=== PATIENT | male | born 1940 | race Caucasian/White ===

== ENCOUNTER 2017-01-27 14:38 | Emergency (ER) | payer OTHER ==
[2017-01-27] MEDS ORDERED: NORMAL SALINE 10 ML SYRINGE FLUSH IVP PRN (14:48)
[2017-01-27] MEDS ORDERED: KETOROLAC 15 MG/1 ML VIAL IVP ONE (14:48)
--- NOTE | 2017-01-27 15:06 | PDOC ---
Back Pain / Injury HPI - General Chief Complaint: Neck / Back Complaint Stated Complaint: BACK PAIN Date Seen by Provider: 01/27/17 Time Seen by Provider: 15:00 - History of Present Illness Initial Comments: This patient is a very nice 76-year-old gentleman who presents to the emergency department with mechanical low back pain. He states that he has had a couple of different injuries back fractures in the past as required 2 different lumbar back surgeries that did include placing hardware in his back. He states that he had another mechanical slip and fall a few days ago and has had increased back pain since that time. He's finding it difficulty comfortable when he lies down it or stands up. He is concerned that there may be something loose in his back. He is unable to get an MRI secondary to a bladder stimulator that is been placed on his hip. He denies any new bladder symptoms or saddle anesthesia or leg symptoms at all. - Patient Home Medications Home Medications: Home Medications Antiox#10/Om3/Dha/Epa/Lut/Zeax [I-Caps with Lutein-Holcomb 3 Sfg] 1 each PO BID Aspirin [Aspir 81] 81 mg PO BID 01/27/17 Budesonide/Formoterol Fumarate [SYMBICORT] 2 inh IH BID 01/27/17 Cranberry Extract [Cranberry Concentrate] 500 mg PO BID 01/27/17 Diazepam [Valium] 10 mg PO BID PRN 01/27/17 Diazepam [Valium] 10 mg PO BID PRN #10 tab 01/27/17 Escitalopram Oxalate 10 mg PO DAILY 01/27/17 Hydrocodone/Acetaminophen [[place] 5-325 Tablet] 1 - 2 tab PO Q4H PRN #14 tab 11/10 Metoprolol Succinate/Hctz [Metoprolol ER-Hctz 25-12.5 mg] 1 each PO BEDTIME 11/10 - Patient Allergies Allergies/Adverse Reactions: Allergies Allergy/AdvReac Type Severity Reaction Status Date / Time Iodinated Contrast- Oral and Allergy Severe "SWELL UP Verified 01/27/17 14:44 IV Dye /TURN RED LIKE LOBSTER" codeine Allergy Intermediate HIVES Verified 01/27/17 14:44 Penicillins Allergy Unknown UNKNOWN Verified 01/27/17 14:44 Past Medical History Alcohol Use: Sober Substance Use Type: None Significant Family History: No pertinent family hx Past Medical History Reviewed: Reviewed - No Changes ROS - Limitations ROS Limitations: No Limitations Constitution: DENIES: Chills, Fever Cardiovascular: REPORTS: Denies Cardiac Symptoms Respiratory: REPORTS: Denies Resp Symptoms Neurological: REPORTS: Denies Neuro Symptoms Back Physical Assessment - General Appearance General Appearance: REPORTS: Alert, Cooperative, No Acute Distress - HEENT HEENT: POSITIVE: Head Inspection Nml, Eyes Inspection Nml - Neck Neck: POSITIVE: Non Tender, Painless ROM - Respiratory / CVS Respiratory / CVS: POSITIVE: Chest Non Tender, Breath Sounds Normal - Abdomen Abdomen: Soft: (All Quadrants), Normal Bowel Sounds: (All Quadrants), Denies Tenderness: (All Quadrants) - Back Back: REPORTS: Normal Inspection, No CVA Tenderness - Skin Skin: REPORTS: Intact, Normal For Race - Extremities Musculoskeletal: REPORTS: Back Pain Back Progress - Results Reviewed by me Xrays/CTs/US Reviewed: Yes - Patient's Progress MDM / ED Course: This patient's symptoms were improved with some Toradol and Norflex. He still does have back pain with any sort of movement however. His plain films show obvious chronic severe back issues but nothing that is obviously acute to me. I have informed him that is likely going to need close monitoring close follow- up and that he may need to have a CT myelogram or some other form of imaging if his back symptoms do not improve readily. Ultimately were going to go ahead and give him a few Lortabs as he normally doesn't take anything for pain after you Valium as he normally doesn't take anything for spasm and he is well aware of the addiction potential with these and will plan on being off of them within 5-7 days. Patient Care Time - Estimated PCT Patient Care Time (In Minutes): 35 Vital Signs - Recent Vital Signs Vital Signs: Vital Signs (Last 8 hours) Temp Pulse Resp BP Pulse Ox 01/27/17 14:48 97.8 F 85 20 128/86 95 - VS Reviewed Vital Signs Reviewed: Yes (all benign) Discharge Clinical Impression: Acute low back pain, Chronic back pain Discharge Disposition: Discharged to Home Condition: Fair Patient Instructions Given at Discharge: Low Back Strain (ED), Back Pain (ED), Chronic Back Pain (ED) Follow Up With: NONE,NONE [Primary Care Provider] -
[2017-01-27 15:33] VITALS: RESP 20; TEMP 97.8
[2017-01-27] MEDS ORDERED: HYDROcodone-APAP 5 MG -325 MG TABLET PO SCH (16:00)
[2017-01-27] MEDS ORDERED: DIAZEPAM 5 MG TABLET PO SCH (16:00)
--- NOTE | 2017-01-27 16:58 | DI ---
LUMBAR SPINE SERIES, 01/27/2017 2:48 PM: Clinical History: Low back pain. Previous Exam: None at this facility. 5 routine upright views are submitted. The patient is status post L5 laminectomy with posterior fusio ns between L4 and S1 and probable also anterior fusions at L4-5 and L5-S1. Posterior fusions are acco mplished with metallic struts transfixed with pedicle screws at L4 and S1. Bone grafts are also prese nt in the posterior fusions are solid. There is an old compression fracture of L3. There is disc spac e narrowing at L1-2 through L3-4 with a grade 1 reverse spondylolisthesis at L3-4. Degenerative arthr itic changes are present in the apophyseal joints bilaterally between the L1 to and L3-4. Arthritic c hanges are also evident in both SI joints. There is osteoporosis. There is what presumably represents a nerve stimulating device in the left buttock region. Readin. Status post posterior fusions between L4 and S1 and these fusions are solid. Status post L5 greyson ectomy and status post probable anterior fusions at L4-5 and L5-S1. 2. There is disc space narrowing at L1-2 through L3-4 with a grade 1 reverse spondylolisthesis at L3 -4. 3. Arthritic changes are present in the apophyseal joints bilaterally between L1-2 and L3-4 and in t he sacroiliac joints. 4. Severe osteoporosis.
== END 2017-01-27 16:13 | disposition home or self-care (01) ==
LOC: ER 14:38
DX: M54.5 Low back pain (principal); M43.16 Spondylolisthesis, lumbar region; W18.39XA Other fall on same level, initial encounter
CPT/HCPCS: 72110; 96374; 96375; 99282; 99283; J2360; J1885

== ENCOUNTER → 2017-02-03 | Outpatient (CLI) | payer OTHER | LOC: MMPC 09:00 | PROVIDERS: ATTEND Family Medicine | DX: M54.5 Low back pain (principal) | CPT/HCPCS: 99202; G0463 ==